=== PATIENT | female | born 1995 | race Caucasian/White ===

== ENCOUNTER 2017-06-07 19:18 | Emergency (ER) | payer OTHER ==
[2017-06-07 21:02] LABS: microscopic required? YES; urine erythrocyte 1+ (NEGATIVE)
[2017-06-07 21:07] LABS: BASOPHIL % 0.3 % (0-2); PLATELET COUNT 365 x10^3mcL (130-400)
[2017-06-07 21:08] LABS: RED CELL DISTRIBUTION WIDTH 14.9 % (11.5-14.5)
[2017-06-07 21:13] LABS: CALCIUM 8.8 mg/dL (8.5-10.1); CARBON DIOXIDE 25.2 mmol/L (21-32); CHLORIDE SERUM 104 mmol/L (98-107); CREATININE SERUM 0.6 mg/dL (0.6-1.0); GFR1 > 60 mL/min; GLUCOSE SERUM 90 mg/dL (74-106); POTASSIUM SERUM 4.1 mmol/L (3.5-5.1); SODIUM SERUM 140 mmol/L (136-145)
[2017-06-07 23:35] VITALS: BP 123/86
== END 2017-06-07 23:35 | disposition home or self-care (01) ==
LOC: ED 19:18
PROVIDERS: Emergency Medicine
DX: O26.91 Pregnancy related conditions, unspecified, first trimester (principal); Z3A.00 Weeks of gestation of pregnancy not specified
CPT/HCPCS: J8610; J9260

== ENCOUNTER 2017-06-08 19:49 | Emergency (ER) | payer OTHER ==
[2017-06-08 23:39] LABS: BASOPHIL % 0.3 % (0-2); PLATELET COUNT 375 x10^3mcL (130-400); RED CELL DISTRIBUTION WIDTH 14.4 % (11.5-14.5)
[2017-06-09 02:10] VITALS: BP 110/60
== END 2017-06-09 02:10 | disposition home or self-care (01) ==
LOC: ED 19:49
PROVIDERS: Emergency Medicine
PROC: BU4CZZZ Ultrasonography of Uterus and Ovaries (ICD-10-PCS; principal; 2017-06-09)
DX: O00.90 Unspecified ectopic pregnancy without intrauterine pregnancy (principal)
CPT/HCPCS: 36415; Q0092